=== PATIENT | female | born 1960 | race Caucasian/White ===

== ENCOUNTER → 2018-12-04 | Outpatient (CLI) | payer SELFPAY ==
[~2018-12-04] MED LIST: Amoxicillin500 MG PO; Bactrim Ds Tab1 EACH PO; CEPH500 PO; Cipro250 MG PO; IBUP600 PO; Norco 5-325 Ta1 EACH PO; PHENA200 PO; Pyridium100 MG PO; Pyridium200 MG PO; TRAM50 PO; Zofran Odt8 MG SL
[2018-12-04 15:06] LABS: BASOPHILS ABSOLUTE AUTO 0.02 K/mm3 (0.00-0.23); BASOPHILS PERCENT AUTO 0 % (0-2); EOSINOPHILS ABSOLUTE AUTO 0.03 K/mm3 (0.00-0.68); EOSINOPHILS PERCENT AUTO 0 % (0-6); Hematocrit 40.1 % (33.0-51.0); Hemoglobin 13.4 g/dL (11.5-16.0); IMMATURE GRAN ABSOLUTE AUTO 0.04 K/mm3 (0.00-0.10); IMMATURE GRAN PERCENT AUTO 0 % (0-1); LYMPHOCYTES ABSOLUTE AUTO 0.71 K/mm3 (0.84-5.20); LYMPHOCYTES PERCENT AUTO 6 % (21-46); MONOCYTES PERCENT AUTO 4 % (4-13); Mean Corpuscular HGB 30.5 pg (26.0-34.0); Mean Corpuscular HGB Conc 33.4 g/dL (31.5-36.5); Mean Corpuscular Volume 91 fL (80-100); Mean Platelet Volume 9.7 fL (9.1-12.4); NEUTROPHILS ABSOLUTE AUTO 10.17 K/mm3 (1.96-9.15); NEUTROPHILS PERCENT AUTO 89 % (41-73); Platelet Count 237 K/mm3 (150-400); RDW Standard Deviation 43.7 fL (35.1-46.3); Red Blood Cell Count 4.39 M/mm3 (3.80-5.20); White Blood Cell Count 11.37 K/mm3 (4.00-11.30)
[2018-12-04 15:17] LABS: Anion Gap 13 mmol/L (6-16); Blood Urea Nitrogen 15 mg/dL (8-24); CO2, Blood 26 mmol/L (21-32); Calcium, Blood 8.8 mg/dL (8.5-10.1); Chloride, Blood 98 mmol/L (98-108); Creatinine, Blood 0.88 mg/dL (0.40-1.00); Glomerular Filtration Rate >60 (60-); Glucose, Blood 100 mg/dL (70-99); Potassium, Blood 3.6 mmol/L (3.5-5.5); Sodium, Blood 137 mmol/L (136-145)
[2018-12-04 15:20] LABS: Troponin I <0.017 ng/mL (0.000-0.040)
== END | disposition home or self-care (01) ==
LOC: LAB EV 15:00 → LAB SHORT 15:00
PROVIDERS: Physician Assistant Surgical
DX: R07.9 Chest pain, unspecified (principal); N12 Tubulo-interstitial nephritis, not specified as acute or chronic
CPT/HCPCS: 80048; 84484; 85025; 87077; 87086; 87186

== ENCOUNTER 2020-01-15 13:04 | Emergency (ER) | payer OTHER ==
[~2020-01-15] VITALS: Ht 170.2 cm; Wt 74.4 kg
[~2020-01-15 13:04] MED LIST changes: +IBUP800 PO; +OXYC5 PO
[2020-01-15 13:54] LABS: Source, Urine Catheter
[2020-01-15 14:06] LABS: Appearance, Urine Hazy (Clear); Bilirubin, Urine Neg (Neg); Blood, Urine 3+ (Neg); Color, Urine Yellow (P-Yellow); Glucose Qualitative, Urine Neg (Neg); Ketones, Urine Neg (Neg); Leukocyte Esterase, Urine 3+ (Neg); Nitrite, Urine Neg (Neg); Protein, Urine 2+ (Neg); Specific Gravity, Urine 1.015 (1.003-1.022); Urobilinogen, Urine NORM (Normal)
[2020-01-15 15:14] LABS: Bacteria Many /hpf; Squamous Epithelial Cells Few /hpf (Few); White Blood Cells, Urine 50-100 /hpf (0-5)
[2020-01-15 15:15] LABS: Hyaline Casts 0-2 /lpf (0-2); Mucus Light (0-Heavy)
[2020-01-15] MEDS ORDERED: Pyridium200 MG PO (15:24)
[2020-01-15] MEDS ORDERED: KEFLEX500 MG PO (15:24)
== END 2020-01-15 15:42 | disposition home or self-care (01) ==
LOC: ER 13:04
PROVIDERS: Physician Assistant
DX: N39.0 Urinary tract infection, site not specified (principal)
CPT/HCPCS: 81001; 87086; 99283; A9270-GY

== ENCOUNTER → 2021-09-13 | Outpatient (CLI) | payer OTHER ==
[~2021-09-13] MED LIST changes: +KEFLEX500 MG PO
[2021-09-19 12:46] LABS: Stool Occult Bld Immuno 1 Negative (NEGATIVE)
== END | disposition home or self-care (01) ==
LOC: LAB SHORT 09:15 → LAB 09:15 → LAB SHORT 09-19 11:38
PROVIDERS: Registered Nurse
DX: Z12.11 Encounter for screening for malignant neoplasm of colon (principal); Z12.12 Encounter for screening for malignant neoplasm of rectum
CPT/HCPCS: G0328

== ENCOUNTER → 2022-10-03 | Outpatient (CLI) | payer OTHER ==
[2022-10-08 10:33] LABS: Stool Occult Bld Immuno 1 Negative (NEGATIVE)
== END ==
LOC: LAB SHORT 11:40 → LAB 11:40
PROVIDERS: Registered Nurse
DX: Z12.11 Encounter for screening for malignant neoplasm of colon (principal)
CPT/HCPCS: G0328

== ENCOUNTER 2023-01-01 07:01 | Day surgery (SDC) | payer OTHER ==
[2023-01-01] VITALS (9 sets, daily range): BP systolic 122–138; BP diastolic 79–94
[~2023-01-01] VITALS: Ht 166 cm; Wt 80.6 kg
[~2023-01-01 07:01] MED LIST changes: +LORA.5 PO; +OMEP20ER PO
[2023-01-01] MEDS ORDERED: VENLAFAXINE HCL75 MG PO (07:26)
[2023-01-01] MEDS ORDERED: ESCI20 PO (07:27)
[2023-01-01] MEDS ORDERED: Hydroxyzine HCl50 MG PO (07:27)
[2023-01-01] MEDS ORDERED: NAPROXEN500 MG PO (07:27)
[2023-01-01] MEDS ORDERED: CYCL10 PO (07:28)
--- NOTE | 2023-01-01 07:33 | NUR ---
History, Chart, Medications and Allergies reviewed before start of procedure. Patient confirms NPO status and agrees with scheduled surgery. Pre-Op teaching done. Pt verbalizes understanding. Lungs clear T/O to Auscultation. Patient reports completing Chlorhexadine shower X2 prior to admission to hospital. Surgical site prepped with 2% Chlorhexidine cloth wipe. Patient States Post-Procedure ride home has been arranged.
--- NOTE | 2023-01-01 10:18 | NUR ---
Patient up to . Discharge instructions reviewed with patient. Patient verbalizes understanding. Copy given to patient to take home, [facility]. Patient States Post-Procedure ride home has been arranged. Discharged via wheelchair to private car for ride home. PT REPORTS PAIN TOLERABLE.TOLERATING PO. REPORTS READY TO GO HOME. PT REPORTS HAVING CRUTCHES IN CAR.SENT WITH PT'S LEG BOOT.
--- NOTE | 2023-01-02 09:23 | NUR ---
01/02/23 0923 Victoria Sandoval VERIFICATIONS: EDIT CHART.
== END 2023-01-01 10:18 | disposition home or self-care (01) ==
LOC: ORSCMMR 07:01 → ORD 07:30 → ORSCMMR 10:18
PROVIDERS: Podiatrist Foot & Ankle Surgery
PROC: 0QSP04Z Reposition Left Metatarsal with Internal Fixation Device, Open Approach (ICD-10-PCS; principal; 2023-01-01 07:30)
DX: S92.355A Nondisplaced fracture of fifth metatarsal bone, left foot, initial encounter for closed fracture (principal); K21.9 Gastro-esophageal reflux disease without esophagitis; F41.8 Other specified anxiety disorders; Z87.891 Personal history of nicotine dependence; M79.7 Fibromyalgia; Z79.899 Other long term (current) drug therapy
CPT/HCPCS: A9270; J0690; J1100; J1885; J2250; J2405; J2704; J3010; J7120

== ENCOUNTER → 2023-01-29 | Outpatient (CLI) | payer OTHER ==
[~2023-01-29] MED LIST changes: +CYCL10 PO; +ESCI20 PO; +Hydroxyzine HCl50 MG PO; +NAPROXEN500 MG PO; +VENLAFAXINE HCL75 MG PO
== END ==
LOC: LAB 18:03 → LAB SHORT 18:03
DX: N39.0 Urinary tract infection, site not specified (principal)
CPT/HCPCS: 87077; 87086; 87186

== ENCOUNTER 2024-05-07 10:22 | Day surgery (SDC) | payer OTHER ==
[~2024-05-07] VITALS: Ht 170.2 cm; Wt 79.4 kg
[~2024-05-07 10:22] MED LIST changes: +Bupivacaine 0.5% W/EPI 1:200000 SDV 30 ML Vial ONE; +Dexamethasone Sod Phos 10 MG/ML 1ML VIAL ONE; +ESCI10 PO; +Lidocaine HCl 2% 10 ML SDA ONE; +Lidocaine HCl/Pf 1% 5 ML VIAL ONE; +Ondansetron HCl 2 MG / ML 2ML Vial ONE; +PROM25 PO; +propofoL 0 ML IV ONE
[2024-05-07] MEDS ORDERED: CeFAZolin Sodium 2,000 MG VIAL ONE (11:04)
[2024-05-07] MEDS ORDERED: propofoL 50 ML IV ONE (11:31)
[2024-05-07] MEDS ORDERED: Acetaminophen 500 MG Tab ONE (11:34)
[2024-05-07] MEDS ORDERED: ESZO3 PO (11:39)
[2024-05-07] MEDS ORDERED: DESV50 PO (11:39)
[2024-05-07] MEDS ORDERED: PRAZ1 PO (11:40)
[2024-05-07] MEDS ORDERED: NAPR500 PO (11:41)
[2024-05-07] MEDS ORDERED: Buspirone HCl15 MG PO (11:41)
[2024-05-07] MEDS ORDERED: Lidocaine HCl 2% 10 ML SDA ONE (11:48)
[2024-05-07] MEDS ORDERED: Lactated Ringer's 1,000 ML IV ONE ×2 (11:49→13:55)
[2024-05-07] MEDS ORDERED: propofoL 20 ML IV ONE ×4 (11:53→14:06)
[2024-05-07] MEDS ORDERED: Dexamethasone Sod Phos 10 MG/ML 1ML VIAL ONE (11:53)
[2024-05-07] MEDS ORDERED: Ondansetron HCl 2 MG / ML 2ML Vial ONE (11:53)
[2024-05-07] MEDS ORDERED: Ketorolac Tromethamine 30mg Vial ONE (11:54)
[2024-05-07] MEDS ORDERED: FentaNYL Citrate 50 MCG/ML 2 ML Injection ONE (11:54)
--- NOTE | 2024-05-07 12:06 | NUR ---
05/07/24 1206 [facility] 1201: 1000 MG TYLENOL GIVEN PER DR WORTHINGTON'S ORDER. VERIFIED THAT PATIENT HAS NOT TAKEN ANY TYLENOL IN THE LAST 24 HRS. VERIFIED ALLERGIES.
[2024-05-07] MEDS ORDERED: Phenylephrine HCl 10mg/ml 1 ml Vial ONE (12:56)
[2024-05-07] MEDS ORDERED: propofoL 40 ML IV ONE (13:24)
[2024-05-07 15:15] VITALS: BP 121/80
--- NOTE | 2024-05-07 15:20 | NUR ---
05/07/24 1520 Shakira Pelaez RN REVIEWED DISCHARGE INSTRUCTIONS WITH PT'S FRIEND LEXIE.
== END 2024-05-07 15:28 | disposition home or self-care (01) ==
LOC: ORSCSDS 10:22
PROVIDERS: Podiatrist Foot & Ankle Surgery
PROC: 0QSN04Z Reposition Right Metatarsal with Internal Fixation Device, Open Approach (ICD-10-PCS; principal; 2024-05-07 12:00)
PROC: 0SSM0ZZ Reposition Right Metatarsal-Phalangeal Joint, Open Approach (ICD-10-PCS; principal; 2024-05-07 12:00)
PROC: 0SGH04Z Fusion of Right Tarsal Joint with Internal Fixation Device, Open Approach (ICD-10-PCS; principal; 2024-05-07 12:00)
DX: M20.11 Hallux valgus (acquired), right foot (principal); Q66.221 Congenital metatarsus adductus, right foot; Z87.891 Personal history of nicotine dependence; K21.9 Gastro-esophageal reflux disease without esophagitis; M79.7 Fibromyalgia; F41.9 Anxiety disorder, unspecified; Z79.899 Other long term (current) drug therapy
CPT/HCPCS: A9270; C1713; J0690; J1100; J1885; J2003; J2371; J2405; J2704; J3010; J7120